=== PATIENT | male | born 1990 | race Caucasian/White ===

== ENCOUNTER 2018-09-29 17:01 | Emergency (ER) | payer SELFPAY ==
[~2018-09-29] VITALS: Ht 172.7 cm; Wt 77.7 kg
--- NOTE | 2018-09-29 17:11 | NUR ---
BREAK RN: PT PRESENTED TO ED D/T LEFT LEG N/T SINCE THIS MORNING. PT ALSO STATES INTERMITTENT "SHARP PAIN" DOWN LEFT LEG. PT AMBUALTED TO ROOM WITH A STEADY GAIT. CMS INTACT.
--- NOTE | 2018-09-29 17:48 | NUR ---
PT AMBULATORY IN ROOM W/OUT DIFFICULTY. C/O NUMBNESS TO LT LEG; STARTED THIS MORNING. DENIES TRAUMA, EXCESSIVE WALKING/RUNNING/EXERCISING. STATES HE WOKE UP W/ SX. PEDAL PULSE STRONG & REG, SKIN WNL. A&OX4, RESP EVEN & UNLABORED, SPEECH CLEAR, DAUGHTER IN ROOM. NO MEDS TAKEN FOR SX.
[2018-09-29 17:50] LABS: BASOPHILS # (AUTO) 0.04 x10^3/uL (0-0.1); BASOPHILS % (AUTO) 1 % (0-1); EOSINOPHILS % (AUTO) 3 % (1-7); HCT (SEDRATE) 38.7 % (39.2-51.8); LYMPHOCYTES # (AUTO) 2.48 x10^3/uL (1-3.4); LYMPHOCYTES % (AUTO) 39 % (22-44); MD NO; MEAN CORPUSCULAR HEMOGLOBIN 27.4 pg (27.5-34.5); MEAN CORPUSCULAR HGB CONC 33.6 g/dL (33.2-36.2); MEAN CORPUSCULAR VOLUME 81.6 fL (81-97); MEAN PLATELET VOLUME 9.4 fL (7.4-10.4); MONOCYTES % (AUTO) 8 % (2-9); NEUTROPHILS # (AUTO) 3.19 x10^3/uL (1.8-6.8); NEUTROPHILS % (AUTO) 50 % (42-75); PLATELET COUNT 180 x10^3/uL (130-400); RED BLOOD COUNT 4.69 x10^6/uL (4.38-5.82); RED CELL DISTRIBUTION WIDTH 13.2 % (9.4-14.8)
--- NOTE | 2018-09-29 17:51 | NUR ---
SWALLOW TEST HELD, FOR NOW. WILL CONFIRM ORDER W/ ERP.
[2018-09-29 18:02] LABS: ANION GAP 6 mmol/L (5-15); CALCIUM 9.1 mg/dL (8.5-10.1); CHLORIDE 109 mmol/L (98-107); CREATININE 0.91 mg/dL (0.7-1.3)
[2018-09-29] MEDS ORDERED: KETOROLAC 30 MG/1 ML ONE (18:27)
[2018-09-29] MEDS ORDERED: KETOROLAC 30 MG/1 ML IM ONE (18:30)
--- NOTE | 2018-09-29 18:31 | NUR ---
PT REFUSING TORADOL IM; PREFERS ORAL PAIN MEDICINE. ERP WILL BE NOTIFIED.
[2018-09-29 18:32] VITALS: BP 129/72
[2018-09-29] MEDS ORDERED: IBUPROFEN 600 MG TABLET ONE (18:51)
--- NOTE | 2018-09-29 18:53 | NUR ---
SWALLOW SCREEN CANCELLED PER DR CAMACHO
[2018-09-29] MEDS ORDERED: IBUPROFEN 200 MG TABLET PO ONE (19:00)
--- NOTE | 2018-09-29 19:20 | NUR ---
PT REPORTS IMPROVEMENT IN PAIN. ANXIOUS FOR DISCHARGE. ASKED ABOUT GETTING A PRESCRIPTION FOR SUBOXONE. INSTRUCTED PT TO FOLLOW-UP WITH PCP OR PAIN MANAGEMENT PHYSICIAN; UNDERSTANDING VERBALIZED. ERP NOTIFIED OF PT REQUEST.
--- NOTE | 2018-09-29 19:37 | NUR ---
OBSERVED PT WALKING INTO RADIOLOGY DEPT HALLWAY, FULLY DRESSED. WALKED AFTER PT, DIRECTED HIM BACK TO ED. PT STATES HE NEEDS TO LEAVE TO TUBE DISPATCHER HIS DAUGHTER. INFORMED PT THAT DR CAMACHO WILL BE PRINTING DC INSTRUCTIONS SOON. PT ASKED IF HE HAD TO WAIT FOR THE DOCUMENTS. INFORMED PT THAT DR CAMACHO IS INTENDING TO WRITE A REFERRAL. PT CHOOSING NOT TO WAIT. ERP WILL BE NOTIFIED. PT AMBULATORY TO DC AREA W/ QUICK STEADY GAIT.
== END 2018-09-29 19:41 | disposition left against medical advice (07) ==
LOC: ED 18:15
DX: R20.0 Anesthesia of skin (principal)
CPT/HCPCS: 36415; 80048; 85025; 85651; 86140; 99283